=== PATIENT | female | born 1950 | race Caucasian/White ===

== ENCOUNTER 2016-11-03 14:46 | Emergency (ER) | payer MEDICARE, MEDICAID ==
[2016-11-03 14:54] VITALS: BP 127/60; PULSE 115; TEMP 97.9; BMI 25.0
[2016-11-03 15:29] LABS: BLOOD UREA NITROGEN 16 MG/DL (7-17); CALCULATED OSMOLALITY 269 MOs/Kg (270-290); CHLORIDE 104 mEq/L (98-107); GLUCOSE 107 MG/DL (70-99); SODIUM LEVEL 139 mEq/L (137-146); TOTAL PROTEIN 7.6 G/DL (6.3-8.2)
[2016-11-03 16:34] LABS: SEG NEUTROPHIL 67 % (45-76)
== END 2016-11-03 16:15 | disposition left against medical advice (07) ==
LOC: ED 14:46
DX: R06.02 Shortness of breath (principal)
CPT/HCPCS: 80053; 85007; 85027; 93005; 99281